=== PATIENT | female | born 1990 | race Hispanic/Latino ===

== ENCOUNTER 2017-06-05 14:21 | Emergency (ER) | payer SELFPAY ==
[2017-06-05 15:52] LABS: BASOPHILS % (AUTO) 0.5 % (0.0-5.0); EOSINOPHILS % (AUTO) 1.2 % (0.0-8.0); HEMATOCRIT 39.9 % (36-48); LYMPHOCYTES % (AUTO) 26.8 % (21.0-51.0); MEAN CORPUSCULAR HEMOGLOBIN 27.3 pg (27.0-33.0); MEAN CORPUSCULAR HGB CONC 32.7 g/dL (32.0-36.0); MEAN CORPUSCULAR VOLUME 83.6 fL (79-99); MONOCYTES % (AUTO) 7.4 % (3.0-13.0); NEUTROPHILS % (AUTO) 64.1 % (40.0-77.0); PLATELET COUNT (AUTO) 365 K/uL (130-400); RED BLOOD CELL COUNT(AUTO) 4.78 MIL/uL (4.00-5.50); RED CELL DISTRIBUTION WIDTH 14.2 % (11.0-15.5); WHITE BLOOD COUNT (AUTO) 11.1 K/uL (4.8-10.8)
[2017-06-05 16:01] LABS: APPEARANCE,URINE Clear (CLEAR); BILIRUBIN,URINE Negative (NEGATIVE); COLOR,URINE Yellow (YELLOW); GLUCOSE, URINE (UA) Negative (NEGATIVE); KETONES,URINE Negative (NEGATIVE); LEUKOCYTE ESTERASE ,URINE Negative (NEGATIVE); NITRATE,URINE Negative (NEGATIVE); OCCULT BLOOD,URINE Trace (NEGATIVE); PH,URINE 5.5 (5.0-8.0); PROTEIN,URINE Negative (NEGATIVE)
[2017-06-05 16:02] LABS: CREATININE 0.6 mg/dL (0.5-1.5); POTASSIUM 4.3 mmol/L (3.5-5.1)
[2017-06-05 16:07] LABS: ALBUMIN 3.6 g/dL (3.5-5.0); BILIRUBIN,TOTAL 0.3 mg/dL (0.2-1.0); TOTAL PROTEIN, SERUM 7.6 g/dL (6.0-8.3)
[2017-06-05 16:10] LABS: HCG,QUAL RESULT NEGATIVE (NEGATIVE)
[2017-06-05 16:16] LABS: BACTERIA,URINE Rare /HPF (None Seen); SQUAMOUS EPITHELIAL CELL,UR Few /LPF (0-2); WBC,URINE 0-1 /HPF (0-1)
[2017-06-05 16:17] LABS: MUCUS,URINE Rare LPF (None Seen)
[2017-06-05 16:19] LABS: AMPHET/METH SCREEN,URINE NEGATIVE (NEGATIVE); BARBITURATE SCREEN, URINE NEGATIVE (NEGATIVE); BENZODIAZEPINES SCREEN,URINE NEGATIVE (NEGATIVE); CANNABINOID SCREEN,URINE NEGATIVE (NEGATIVE); COCAINE SCREEN,URINE NEGATIVE (NEGATIVE); OPIATE SCREEN,URINE NEGATIVE (NEGATIVE); PHENCYCLIDINE SCREEN,URINE NEGATIVE (NEGATIVE)
[2017-06-05] MEDS ORDERED: HYOSCYAMINE SULFATE 0.125 MG TAB.SUBL SL ONE (16:26)
[2017-06-05] MEDS ORDERED: FAMOTIDINE 20MG TAB 20 MG TAB ONE (16:27)
[2017-06-05] MEDS ORDERED: ONDANSETRON ODT 4 MG TAB ONE (16:27)
== END 2017-06-05 16:44 | disposition home or self-care (01) ==
LOC: EDH 14:21
DX: R10.12 Left upper quadrant pain (principal); R11.2 Nausea with vomiting, unspecified; Z87.442 Personal history of urinary calculi; Z88.6 Allergy status to analgesic agent; Z72.0 Tobacco use
CPT/HCPCS: 36415; 80053; 80305; 81001; 81025; 83690; 85025

== ENCOUNTER 2017-10-20 19:39 | Emergency (ER) | payer OTHER ==
[2017-10-20 20:14] LABS: APPEARANCE,URINE SL CLOUDY (CLEAR); BILIRUBIN,URINE NEGATIVE (NEGATIVE); COLOR,URINE YELLOW (YELLOW); GLUCOSE, URINE (UA) NEGATIVE (NEGATIVE); KETONES,URINE 5 mg/dL (NEGATIVE); LEUKOCYTE ESTERASE ,URINE NEGATIVE (NEGATIVE); NITRATE,URINE NEGATIVE (NEGATIVE); OCCULT BLOOD,URINE SMALL (NEGATIVE); PROTEIN,URINE TRACE (NEGATIVE)
[2017-10-20 20:23] LABS: AMPHET/METH SCREEN,URINE NEGATIVE (NEGATIVE); BARBITURATE SCREEN, URINE NEGATIVE (NEGATIVE); BENZODIAZEPINES SCREEN,URINE NEGATIVE (NEGATIVE); CANNABINOID SCREEN,URINE NEGATIVE (NEGATIVE); COCAINE SCREEN,URINE NEGATIVE (NEGATIVE); OPIATE SCREEN,URINE POSITIVE (NEGATIVE); PHENCYCLIDINE SCREEN,URINE NEGATIVE (NEGATIVE)
[2017-10-20 20:26] LABS: BASOPHILS % (AUTO) 0.6 % (0.0-5.0); EOSINOPHILS % (AUTO) 1.4 % (0.0-8.0); HEMATOCRIT 39.5 % (36-48); LYMPHOCYTES % (AUTO) 23.1 % (21.0-51.0); MEAN CORPUSCULAR HEMOGLOBIN 27.1 pg (27.0-33.0); MEAN CORPUSCULAR HGB CONC 32.4 g/dL (32.0-36.0); MEAN CORPUSCULAR VOLUME 83.5 fL (79-99); MONOCYTES % (AUTO) 7.9 % (3.0-13.0); PLATELET COUNT (AUTO) 388 K/uL (130-400); RED BLOOD CELL COUNT(AUTO) 4.74 MIL/uL (4.00-5.50); RED CELL DISTRIBUTION WIDTH 14.2 % (11.0-15.5); WHITE BLOOD COUNT (AUTO) 11.9 K/uL (4.8-10.8)
[2017-10-20 20:27] LABS: BACTERIA,URINE Rare /HPF (None Seen); RBC,URINE 0-1 /HPF (0-1); WBC,URINE 0-1 /HPF (0-1)
[2017-10-20 20:38] LABS: CARBON DIOXIDE 30 mmol/L (21-32); CHLORIDE 103 mmol/L (101-111); CREATININE 0.8 mg/dL (0.5-1.5); GLOMERULAR FILTR. RATE CALC 90 mL/min (>60); GLUCOSE,RANDOM 108 mg/dL (70-105); POTASSIUM 3.9 mmol/L (3.5-5.1); SODIUM SERUM 142 mmol/L (136-145); UREA NITROGEN, BLOOD 12 mg/dL (7-18)
[2017-10-20 20:40] LABS: INR 0.95 (0.85-1.15); PARTIAL THROMBOPLASTIN TIME 28.9 SEC (26.3-35.5)
[2017-10-20 20:46] LABS: HCG,QUAL RESULT NEGATIVE (NEGATIVE)
[2017-10-20 20:50] LABS: ALANINE AMINOTRANSFERASE 35 U/L (12-78); ALBUMIN 3.8 g/dL (3.5-5.0); ASPARTATE AMINOTRANSFERASE 22 U/L (10-37); BILIRUBIN,TOTAL 0.3 mg/dL (0.2-1.0); CREATINE KINASE MB < 0.5 ng/mL (0.5-3.6); CREATINE KINASE, TOTAL 77 U/L (21-232); TOTAL PROTEIN, SERUM 7.9 g/dL (6.0-8.3)
[2017-10-20 20:55] LABS: ACETAMINOPHEN < 1 mcg/mL (10-30); ALCOHOL, BLOOD < 3 mg/dL (0-10); SALICYLATE < 2.8 mg/dL (2.8-20.0)
[2017-10-20] MEDS ORDERED: DIPHENHYDRAMINE HCL 25 MG CAPSULE ONE (21:15)
[2017-10-20] MEDS ORDERED: NAPROXEN 500 MG TABLET ONE (21:15)
[2017-10-20] MEDS ORDERED: METOCLOPRAMIDE 10 MG TABLET ONE (21:15)
== END 2017-10-20 22:18 | disposition home or self-care (01) ==
LOC: EDH 19:39
DX: G44.89 Other headache syndrome (principal); R03.0 Elevated blood-pressure reading, without diagnosis of hypertension; Z87.442 Personal history of urinary calculi; Z72.0 Tobacco use
CPT/HCPCS: 36415; 80053; 80305; 81001; 81025; 82550; 82553; 84484; 85025; 85610; 85730; 93005; 99285; G0480 ×2; G0481; Q0163

== ENCOUNTER 2018-02-05 17:17 | Emergency (ER) | payer OTHER ==
[2018-02-05] MEDS ORDERED: IBUPROFEN 600 MG TABLET ONE (19:06)
[2018-02-05] MEDS ORDERED: ACETAMINOPHEN-CODEINE 300/30MG TAB ONE (19:07)
== END 2018-02-05 19:27 | disposition home or self-care (01) ==
LOC: EDH 17:17
DX: R07.89 Other chest pain (principal); M94.0 Chondrocostal junction syndrome [Tietze]; Z87.891 Personal history of nicotine dependence; Z87.442 Personal history of urinary calculi; Z90.49 Acquired absence of other specified parts of digestive tract
CPT/HCPCS: 71045

== ENCOUNTER 2019-06-26 22:22 | Emergency (ER) | payer SELFPAY ==
[2019-06-26] MEDS ORDERED: ONDANSETRON ODT 4 MG TAB ONE (23:07)
[2019-06-26 23:34] LABS: HCG,QUAL RESULT NEGATIVE (NEGATIVE)
[2019-06-26 23:36] LABS: APPEARANCE,URINE Clear (CLEAR); BILIRUBIN,URINE Negative (NEGATIVE); COLOR,URINE Yellow (YELLOW); GLUCOSE, URINE (UA) Negative (NEGATIVE); KETONES,URINE Negative (NEGATIVE); LEUKOCYTE ESTERASE ,URINE Negative (NEGATIVE); NITRATE,URINE Negative (NEGATIVE); OCCULT BLOOD,URINE Negative (NEGATIVE); PH,URINE 5.5 (5.0-8.0); PROTEIN,URINE Negative (NEGATIVE)
[2019-06-26] MEDS ORDERED: KETOROLAC TROMETHAMINE 60 MG/2 ML VIAL ONE (23:43)
[2019-06-26] MEDS ORDERED: CYCLOBENZAPRINE HCL 10 MG TABLET ONE (23:43)
== END 2019-06-27 01:29 | disposition home or self-care (01) ==
LOC: EDH 22:22
DX: M54.31 Sciatica, right side (principal); K21.9 Gastro-esophageal reflux disease without esophagitis
CPT/HCPCS: 81003; 81025; 93971; 96372; 99284; J1885

== ENCOUNTER 2020-07-30 22:23 | Emergency (ER) | payer OTHER, SELFPAY ==
[2020-07-30] MEDS ORDERED: ASPIRIN 325 MG TABLET ONE (23:00)
[2020-07-30 23:26] LABS: BASOPHILS % (AUTO) 0.4 % (0.0-5.0); EOSINOPHILS % (AUTO) 1.5 % (0.0-8.0); HEMATOCRIT 39.5 % (36-48); LYMPHOCYTES % (AUTO) 30.2 % (21.0-51.0); MEAN CORPUSCULAR HEMOGLOBIN 26.9 pg (27.0-33.0); MEAN CORPUSCULAR HGB CONC 31.6 g/dL (32.0-36.0); MEAN CORPUSCULAR VOLUME 85.1 fL (79-99); NEUTROPHILS % (AUTO) 59.6 % (40.0-77.0); PLATELET COUNT (AUTO) 334 K/uL (130-400); RED BLOOD CELL COUNT(AUTO) 4.64 MIL/uL (4.00-5.50); RED CELL DISTRIBUTION WIDTH 13.5 % (11.0-15.5); WHITE BLOOD COUNT (AUTO) 11.4 K/uL (4.8-10.8)
[2020-07-30 23:44] LABS: CREATININE 0.8 mg/dL (0.5-1.5); POTASSIUM 3.9 mmol/L (3.5-5.1)
[2020-07-30 23:49] LABS: ALBUMIN 3.8 g/dL (3.5-5.0); BILIRUBIN,TOTAL 0.4 mg/dL (0.2-1.0); TOTAL PROTEIN, SERUM 7.7 g/dL (6.0-8.3)
[2020-07-31] MEDS ORDERED: MAG HYDROX/AL HYDROX/SIMETH ES 30 ML SUSP UDCUP ONE (01:00)
[2020-07-31] MEDS ORDERED: LIDOCAINE HCL 2% VISCOUS 15 ML UDCUP ONE (01:00)
== END 2020-07-31 03:13 | disposition home or self-care (01) ==
LOC: EDH 22:23
DX: R07.89 Other chest pain (principal); F41.1 Generalized anxiety disorder; E66.01 Morbid (severe) obesity due to excess calories; K21.9 Gastro-esophageal reflux disease without esophagitis
CPT/HCPCS: 36415; 71045; 80053; 84484; 85025; 85378; 93005

== ENCOUNTER 2020-11-11 09:31 | Emergency (ER) | payer OTHER ==
[~2020-11-11] VITALS: Ht 149.9 cm; Wt 139.7 kg
[2020-11-11 10:00] VITALS: BP 120/67
[2020-11-11 10:01] LABS: BASOPHILS % (AUTO) 0.5 % (0.0-5.0); HEMATOCRIT 40.4 % (36-48); LYMPHOCYTES % (AUTO) 26.3 % (21.0-51.0); MEAN CORPUSCULAR HEMOGLOBIN 26.1 pg (27.0-33.0); MEAN CORPUSCULAR HGB CONC 30.4 g/dL (32.0-36.0); MEAN CORPUSCULAR VOLUME 85.8 fL (79-99); MONOCYTES % (AUTO) 8.7 % (3.0-13.0); NEUTROPHILS % (AUTO) 63.1 % (40.0-77.0); PLATELET COUNT (AUTO) 342 K/uL (130-400); RED BLOOD CELL COUNT(AUTO) 4.71 MIL/uL (4.00-5.50); RED CELL DISTRIBUTION WIDTH 13.8 % (11.0-15.5); WHITE BLOOD COUNT (AUTO) 9.1 K/uL (4.8-10.8)
[2020-11-11 10:04] LABS: APPEARANCE,URINE Cloudy (CLEAR); BILIRUBIN,URINE Small (NEGATIVE); COLOR,URINE Dark Yellow (YELLOW); GLUCOSE, URINE (UA) Negative (NEGATIVE); KETONES,URINE Trace mg/dL (NEGATIVE); LEUKOCYTE ESTERASE ,URINE Trace (NEGATIVE); NITRATE,URINE Negative (NEGATIVE); OCCULT BLOOD,URINE Large (NEGATIVE); PH,URINE 5.5 (5.0-8.0); PROTEIN,URINE POS 1+ mg/dL (NEGATIVE)
[2020-11-11 10:09] LABS: CREATININE 0.8 mg/dL (0.5-1.5)
[2020-11-11 10:09] LABS: HCG,QUAL RESULT NEGATIVE (NEGATIVE)
[2020-11-11 10:13] LABS: ALBUMIN 3.9 g/dL (3.5-5.0); BILIRUBIN,TOTAL 0.4 mg/dL (0.2-1.0); TOTAL PROTEIN, SERUM 7.9 g/dL (6.0-8.3)
[2020-11-11 10:30] LABS: MUCUS,URINE Moderate LPF (None Seen); SQUAMOUS EPITHELIAL CELL,UR Few /HPF (0-2)
[2020-11-11] MEDS ORDERED: ONDANSETRON 4MG INJ IVP ONE (10:30)
[2020-11-11] MEDS ORDERED: KETOROLAC 30MG VIAL (30MG/ML) IV ONE (10:30)
[2020-11-11] MEDS ORDERED: MORPHINE 4 MG SYG IV ONE (10:30)
[2020-11-11 10:33] LABS: WBC,URINE 51-100 /HPF (0-1)
[2020-11-11 10:34] LABS: BACTERIA,URINE Few /HPF (None Seen)
[2020-11-11] MEDS: CEFTRIAXONE 1G VIAL IVP SCH ×3 (11:05→14:08)
[2020-11-11] MEDS ORDERED: 0.9%NACL 100ML 100 ML ONE (11:22)
[2020-11-11 12:00] VITALS: BP 116/74
[2020-11-11 14:02] VITALS: BP 118/38
[2020-11-11] MEDS ORDERED: LEVO500T89 PO (14:07)
[2020-11-11] MEDS ORDERED: ONDA4TAB10 PO (14:07)
[2020-11-11] MEDS ORDERED: IBUP-2070 PO (14:07)
[2020-11-11] MEDS ORDERED: PHEN-847 PO (22:07)
[2020-11-11] MEDS ORDERED: TAMS-1 PO (22:07)
== END 2020-11-11 14:54 | disposition home or self-care (01) ==
LOC: EDH 09:31
DX: N20.1 Calculus of ureter (principal); N39.0 Urinary tract infection, site not specified
CPT/HCPCS: 36415; 74176; 80053; 81001; 81025; 83690; 85025; 87088; 96374; 96375; 99284; J0696; J1885; J2270; J2405

== ENCOUNTER 2020-11-11 21:12 | Emergency (ER) | payer OTHER ==
[~2020-11-11] VITALS: Ht 149.9 cm; Wt 136.1 kg
[~2020-11-11 21:12] MED LIST: IBUP-2070 PO; LEVO500T89 PO; ONDA4TAB10 PO
[2020-11-11] MEDS ORDERED: KETOROLAC 30MG VIAL (30MG/ML) IM ONE (22:00)
[2020-11-11] MEDS ORDERED: PHENAZOPYRIDINE HCL 200 MG TABLET PO ONE (22:00)
[2020-11-11] MEDS ORDERED: TAMS-1 PO (22:07)
[2020-11-11] MEDS ORDERED: PHEN-847 PO (22:07)
[2020-11-11 22:15] VITALS: BP 136/51
== END 2020-11-11 22:29 | disposition home or self-care (01) ==
LOC: EDH 21:12
DX: N20.0 Calculus of kidney (principal); N39.0 Urinary tract infection, site not specified; Z79.1 Long term (current) use of non-steroidal anti-inflammatories (NSAID); Z79.899 Other long term (current) drug therapy
CPT/HCPCS: 96372; 99283; J1885

== ENCOUNTER 2021-02-20 08:09 | Emergency (ER) | payer SELFPAY ==
[~2021-02-20] VITALS: Ht 149.9 cm; Wt 136.1 kg
[~2021-02-20 08:09] MED LIST changes: -LEVO500T89 PO; +LEVO500T90 PO; +PHEN-847 PO; +TAMS-1 PO
[2021-02-20 09:51] LABS: BASOPHILS % (AUTO) 0.7 % (0.0-5.0); EOSINOPHILS % (AUTO) 1.5 % (0.0-8.0); HEMATOCRIT 40.4 % (36-48); LYMPHOCYTES % (AUTO) 26.4 % (21.0-51.0); MEAN CORPUSCULAR HEMOGLOBIN 26.1 pg (27.0-33.0); MEAN CORPUSCULAR HGB CONC 30.7 g/dL (32.0-36.0); MEAN CORPUSCULAR VOLUME 85.1 fL (79-99); MONOCYTES % (AUTO) 6.7 % (3.0-13.0); NEUTROPHILS % (AUTO) 64.3 % (40.0-77.0); PLATELET COUNT (AUTO) 337 K/uL (130-400); RED BLOOD CELL COUNT(AUTO) 4.75 MIL/uL (4.00-5.50); RED CELL DISTRIBUTION WIDTH 13.6 % (11.0-15.5); WHITE BLOOD COUNT (AUTO) 10.6 K/uL (4.8-10.8)
[2021-02-20 10:00] LABS: CREATININE 0.7 mg/dL (0.5-1.5); POTASSIUM 4.4 mmol/L (3.5-5.1)
[2021-02-20] MEDS ORDERED: ONDANSETRON 4MG INJ IVP ONE (10:00)
[2021-02-20] MEDS ORDERED: KETOROLAC 30MG VIAL (30MG/ML) IVP ONE (10:00)
[2021-02-20] MEDS ORDERED: 0.9%NACL 1000ML 1,000 ML IV ONE (10:00)
[2021-02-20 10:05] LABS: ALBUMIN 3.9 g/dL (3.5-5.0); BILIRUBIN,TOTAL 0.4 mg/dL (0.2-1.0); TOTAL PROTEIN, SERUM 8.1 g/dL (6.0-8.3)
[2021-02-20] MEDS ORDERED: HYDROCODONE/ACETAMINOPHEN 10/325 MG TAB PO ONE (12:00)
[2021-02-20] MEDS ORDERED: IOHEXOL-350 75 ML VIAL IV ONE (12:02)
[2021-02-20] MEDS ORDERED: BUTA-271 PO (15:32)
[2021-02-20 15:52] VITALS: BP 146/75
== END 2021-02-20 15:56 | disposition home or self-care (01) ==
LOC: EDH 08:09
DX: G43.909 Migraine, unspecified, not intractable, without status migrainosus (principal); Z79.1 Long term (current) use of non-steroidal anti-inflammatories (NSAID); Z79.899 Other long term (current) drug therapy; Z87.442 Personal history of urinary calculi
CPT/HCPCS: 36415; 70450; 70496; 70498; 80053; 81025; 84484; 84702; 85025; 93005; 96361; 96374; 96375; 99285; J1885; J2405; J7030; Q9967

== ENCOUNTER 2021-09-14 01:19 | Emergency (ER) | payer OTHER ==
[~2021-09-14] VITALS: Ht 149.9 cm; Wt 142.9 kg
[~2021-09-14 01:19] MED LIST changes: +BUTA-271 PO
[2021-09-14 02:03] LABS: BASOPHILS % (AUTO) 0.5 % (0.0-5.0); EOSINOPHILS % (AUTO) 0.6 % (0.0-8.0); HEMATOCRIT 40.6 % (36-48); LYMPHOCYTES % (AUTO) 23.2 % (21.0-51.0); MEAN CORPUSCULAR HEMOGLOBIN 26.3 pg (27.0-33.0); MEAN CORPUSCULAR HGB CONC 30.8 g/dL (32.0-36.0); MEAN CORPUSCULAR VOLUME 85.5 fL (79-99); MONOCYTES % (AUTO) 6.4 % (3.0-13.0); NEUTROPHILS % (AUTO) 68.9 % (40.0-77.0); PLATELET COUNT (AUTO) 329 K/uL (130-400); RED BLOOD CELL COUNT(AUTO) 4.75 MIL/uL (4.00-5.50); RED CELL DISTRIBUTION WIDTH 13.2 % (11.0-15.5); WHITE BLOOD COUNT (AUTO) 14.5 K/uL (4.8-10.8)
[2021-09-14 02:16] LABS: CREATININE 0.9 mg/dL (0.5-1.5); POTASSIUM 3.7 mmol/L (3.5-5.1)
[2021-09-14 02:21] LABS: ALBUMIN 3.9 g/dL (3.5-5.0); BILIRUBIN,TOTAL 0.6 mg/dL (0.2-1.0); TOTAL PROTEIN, SERUM 7.9 g/dL (6.0-8.3)
[2021-09-14] MEDS ORDERED: ONDANSETRON 4MG INJ IVP ONE (03:30)
[2021-09-14] MEDS ORDERED: MORPHINE 4 MG SYG IVP ONE (03:30)
[2021-09-14] MEDS ORDERED: 0.9%NACL 1000ML 1,000 ML IV ONE ×2 (03:30→05:30)
[2021-09-14] MEDS ORDERED: KETOROLAC 30MG VIAL (30MG/ML) ONE (04:13)
[2021-09-14] MEDS ORDERED: HYDROMORPHONE 0.5 MG SYG (0.5MG/0.5ML) IVP ONE (05:30)
[2021-09-14] MEDS ORDERED: IBUP-2070 PO (05:31)
[2021-09-14] MEDS ORDERED: ACET-2079 PO (05:31)
[2021-09-14 06:21] VITALS: BP 125/83
== END 2021-09-14 06:25 | disposition home or self-care (01) ==
LOC: EDH 01:19
DX: N23 Unspecified renal colic (principal); Z79.1 Long term (current) use of non-steroidal anti-inflammatories (NSAID); Z90.49 Acquired absence of other specified parts of digestive tract; Z87.442 Personal history of urinary calculi
CPT/HCPCS: 36415; 74176; 80053; 84703; 85025; 96361; 96374; 96375; 99285; J1170; J1885; J2270; J2405; J7030

== ENCOUNTER 2021-09-21 10:14 | Emergency (ER) | payer OTHER ==
[~2021-09-21] VITALS: Ht 149.9 cm; Wt 142.4 kg
[~2021-09-21 10:14] MED LIST changes: +ACET-2079 PO
[2021-09-21 10:57] LABS: BASOPHILS % (AUTO) 0.5 % (0.0-5.0); EOSINOPHILS % (AUTO) 1.2 % (0.0-8.0); HEMATOCRIT 39.1 % (36-48); LYMPHOCYTES % (AUTO) 26.6 % (21.0-51.0); MEAN CORPUSCULAR HEMOGLOBIN 25.9 pg (27.0-33.0); MEAN CORPUSCULAR HGB CONC 30.2 g/dL (32.0-36.0); MEAN CORPUSCULAR VOLUME 85.7 fL (79-99); MONOCYTES % (AUTO) 6.9 % (3.0-13.0); NEUTROPHILS % (AUTO) 64.2 % (40.0-77.0); PLATELET COUNT (AUTO) 336 K/uL (130-400); RED BLOOD CELL COUNT(AUTO) 4.56 MIL/uL (4.00-5.50); RED CELL DISTRIBUTION WIDTH 13.2 % (11.0-15.5); WHITE BLOOD COUNT (AUTO) 10.9 K/uL (4.8-10.8)
[2021-09-21] MEDS ORDERED: ONDANSETRON 4MG INJ IVP ONE (11:00)
[2021-09-21] MEDS ORDERED: KETOROLAC 30MG VIAL (30MG/ML) IVP ONE (11:00)
[2021-09-21] MEDS ORDERED: 0.9%NACL 1000ML 1,000 ML IV ONE (11:00)
[2021-09-21 11:09] LABS: APPEARANCE,URINE Turbid (CLEAR); BILIRUBIN,URINE Negative (NEGATIVE); COLOR,URINE Dark Yellow (YELLOW); GLUCOSE, URINE (UA) Negative (NEGATIVE); KETONES,URINE Trace mg/dL (NEGATIVE); LEUKOCYTE ESTERASE ,URINE Small (NEGATIVE); NITRATE,URINE Negative (NEGATIVE); OCCULT BLOOD,URINE Large (NEGATIVE); PROTEIN,URINE POS 1+ mg/dL (NEGATIVE)
[2021-09-21 11:11] LABS: HCG,QUAL RESULT NEGATIVE (NEGATIVE)
[2021-09-21 11:22] LABS: CREATININE 0.7 mg/dL (0.5-1.5); POTASSIUM 4.2 mmol/L (3.5-5.1)
[2021-09-21 11:26] LABS: ALBUMIN 3.7 g/dL (3.5-5.0); BILIRUBIN,TOTAL 0.5 mg/dL (0.2-1.0); TOTAL PROTEIN, SERUM 7.7 g/dL (6.0-8.3)
[2021-09-21 11:28] LABS: BACTERIA,URINE Moderate /HPF (None Seen); RBC,URINE None Seen /HPF (0-1); WBC,URINE 26-50 /HPF (0-1)
[2021-09-21] MEDS ORDERED: CEFTRIAXONE 1G VIAL IVP ONE (13:30)
[2021-09-21] MEDS ORDERED: CEPH500B PO (13:34)
[2021-09-21 13:56] VITALS: BP 129/81
== END 2021-09-21 14:15 | disposition home or self-care (01) ==
LOC: EDH 10:14
DX: N10 Acute pyelonephritis (principal); Z90.49 Acquired absence of other specified parts of digestive tract; Z79.1 Long term (current) use of non-steroidal anti-inflammatories (NSAID)
CPT/HCPCS: 36415; 74176; 80053; 81001; 81025; 85025; 87088; 96361; 96374; 96375; 99284; J0696; J1885; J2405; J7030

== ENCOUNTER 2022-02-23 01:52 | Emergency (ER) | payer OTHER ==
[~2022-02-23] VITALS: Ht 149.9 cm; Wt 143.9 kg
[~2022-02-23 01:52] MED LIST changes: +CEPH500B PO; +LEVO-70 PO; -LEVO500T90 PO
[2022-02-23 03:36] LABS: BASOPHILS % (AUTO) 0.7 % (0.0-5.0); EOSINOPHILS % (AUTO) 2.4 % (0.0-8.0); LYMPHOCYTES % (AUTO) 26.5 % (21.0-51.0); MEAN CORPUSCULAR HEMOGLOBIN 26.2 pg (27.0-33.0); MEAN CORPUSCULAR VOLUME 84.6 fL (79-99); MONOCYTES % (AUTO) 8.1 % (3.0-13.0); NEUTROPHILS % (AUTO) 61.8 % (40.0-77.0); PLATELET COUNT (AUTO) 316 K/uL (130-400); RED BLOOD CELL COUNT(AUTO) 4.73 MIL/uL (4.00-5.50); RED CELL DISTRIBUTION WIDTH 13.7 % (11.0-15.5); WHITE BLOOD COUNT (AUTO) 12.3 K/uL (4.8-10.8)
[2022-02-23 03:38] LABS: HCG,QUALITATIVE URINE NEGATIVE (NEGATIVE)
[2022-02-23 03:39] LABS: APPEARANCE,URINE CLEAR (CLEAR); BILIRUBIN,URINE NEGATIVE (NEGATIVE); COLOR,URINE LIGHT-YELLOW (YELLOW); GLUCOSE, URINE (UA) NEGATIVE (NEGATIVE); KETONES,URINE NEGATIVE (NEGATIVE); LEUKOCYTE ESTERASE ,URINE NEGATIVE Leu/uL (NEGATIVE); NITRATE,URINE NEGATIVE (NEGATIVE); OCCULT BLOOD,URINE NEGATIVE (NEGATIVE); PH,URINE 6.5 (5.0-8.0); PROTEIN,URINE NEGATIVE (NEGATIVE); UROBILINOGEN,URINE 0.2 mg/dL (0.2-1.0)
[2022-02-23 03:46] LABS: CREATININE 0.7 mg/dL (0.5-1.5)
[2022-02-23 03:50] LABS: ALBUMIN 3.7 g/dL (3.5-5.0)
[2022-02-23] MEDS ORDERED: KETOROLAC 60 MG VIAL (30MG/ML) IM ONE (04:00)
[2022-02-23] MEDS ORDERED: FAMOTIDINE 20MG TAB PO ONE (04:00)
[2022-02-23] MEDS ORDERED: HYOSCYAMINE SULFATE 0.125 MG TAB.SUBL SL ONE (04:00)
[2022-02-23] MEDS ORDERED: KETOROLAC 30MG VIAL (30MG/ML) IVP ONE (04:30)
[2022-02-23 04:31] LABS: PLATELET MORPHOLOGY LARGE PLTS PRESENT
[2022-02-23 06:13] VITALS: BP 127/76
[2022-02-23] MEDS ORDERED: SUCR1TAB28 PO (06:39)
[2022-02-23] MEDS ORDERED: FAMO-136 PO (06:39)
== END 2022-02-23 06:52 | disposition home or self-care (01) ==
LOC: EDH 01:52
DX: R07.89 Other chest pain (principal); R06.02 Shortness of breath; R11.0 Nausea; Z79.1 Long term (current) use of non-steroidal anti-inflammatories (NSAID)
CPT/HCPCS: 99285; 96374; 71045; 82550; 84484 ×2; 80053; 83690; 85025; 85378; 87804 ×2; 81003; 81025; 36415; 93005 ×2; J1885

== ENCOUNTER 2024-04-26 17:22 | Emergency (ER) | payer SELFPAY ==
[~2024-04-26] VITALS: Ht 149.9 cm; Wt 136.1 kg
[~2024-04-26 17:22] MED LIST changes: +FAMO-136 PO; +KETO10TA2 PO; +METH-662 PO; +ONDA-243 PO; -ONDA4TAB10 PO; +SUCR1TAB28 PO
[2024-04-26 17:41] LABS: APPEARANCE,URINE CLOUDY (CLEAR); BILIRUBIN,URINE NEGATIVE (NEGATIVE); COLOR,URINE YELLOW (YELLOW); GLUCOSE, URINE (UA) NEGATIVE (NEGATIVE); KETONES,URINE NEGATIVE (NEGATIVE); LEUKOCYTE ESTERASE ,URINE NEGATIVE Leu/uL (NEGATIVE); NITRATE,URINE NEGATIVE (NEGATIVE); OCCULT BLOOD,URINE LARGE (NEGATIVE); PH,URINE 5.5 (5.0-8.0); PROTEIN,URINE 50 mg/dL (NEGATIVE); UROBILINOGEN,URINE 0.2 mg/dL (0.2-1.0)
[2024-04-26 17:43] LABS: ADD UA MICROSCOPIC YES
[2024-04-26 17:46] LABS: BACTERIA,URINE RARE /HPF (None Seen); HCG,QUALITATIVE URINE NEGATIVE (NEGATIVE); MUCUS,URINE FEW LPF (None Seen); RBC,URINE >100 /HPF (0-1); SQUAMOUS EPITHELIAL CELL,UR FEW /HPF (0-2); YEAST,URINE BUDDING FEW /HPF (None Seen)
[2024-04-26] MEDS: 0.9%NACL 1000ML 1,000 ML IV STA (19:48)
[2024-04-26] MEDS: ketOROlac 15MG/ML VIAL (15MG/ML) IV STA (19:48)
--- NOTE | 2024-04-26 19:51 | HMCIMG ---
CT ABDOMEN/PELVIS W/O CONTRAST HISTORY: Left flank pain COMPARISON: 10/08/2023 TECHNIQUE: Multiple sequential axial images of the abdomen and pelvis were obtained from the dome of the diaphragm through symphysis pubis. Patient was not given contrast through intravenous route. Oral contrast was not given. FINDINGS: No pleural effusion is seen bilaterally. There is no evidence of parenchymal disease or pulmonary nodule of the visualized lower lungs. Degenerative changes of the thoracolumbar spine are present. The heart is not enlarged. Liver is enlarged with fatty changes measuring 20 cm. Postcholecystectomy changes are seen. The liver, spleen, adrenal glands and pancreas are unremarkable. No hydronephrosis is seen on the right. There is mild left hydronephrosis and left hydroureter with 3 mm renal stone in the left UV junction. There is mild diverticulosis. Fecal material is seen in the colon. There are normal size retroperitoneal and mesenteric lymph nodes. No ascites is seen. Atherosclerotic changes are present. Pelvic sidewalls are symmetric bilaterally. Bladder is poorly distended. IMPRESSION: 1. There is mild left hydronephrosis and left hydroureter with 3 mm renal stone in the left UV junction. There is mild diverticulosis. CT was performed with one or more following dose reduction techniques: automated exposure control, adjustment of the mA and kv according to patient's size, or use of a iterative reconstruction technique.
[2024-04-26 20:13] LABS: BASOPHILS # (AUTO) 0.06 K/uL (0.00-0.20); BASOPHILS % (AUTO) 0.4 % (0.0-5.0); EOSINOPHILS # (AUTO) 0.13 K/uL (0.00-0.70); HEMATOCRIT 40.3 % (36-48); IMMATURE GRANULOCYTE ABSOLUTE 0.07 K/uL (0-1); LYMPHOCYTES # (AUTO) 1.9 K/uL (1.0-4.8); MEAN CORPUSCULAR HEMOGLOBIN 26.1 pg (27.0-33.0); MEAN CORPUSCULAR HGB CONC 30.8 g/dL (32.0-36.0); MEAN CORPUSCULAR VOLUME 84.7 fL (79-99); MONOCYTES # (AUTO) 0.8 K/uL (0.1-1.0); MONOCYTES % (AUTO) 5.8 % (3.0-13.0); NEUTROPHILS # (AUTO) 10.7 K/uL (1.8-7.7); NEUTROPHILS % (AUTO) 78.3 % (40.0-77.0); PLATELET COUNT (AUTO) 359 K/uL (130-400); RED BLOOD CELL COUNT(AUTO) 4.76 MIL/uL (4.00-5.50); WHITE BLOOD COUNT (AUTO) 13.6 K/uL (4.8-10.8)
[2024-04-26 20:21] LABS: CREATININE 0.7 mg/dL (0.5-1.0); POTASSIUM 4.4 mmol/L (3.5-5.1)
[2024-04-26] MEDS ORDERED: TAMS-1 PO (20:56)
[2024-04-26] MEDS ORDERED: SULF1TAB42 PO (20:56)
[2024-04-26] MEDS ORDERED: KETO10TA2 PO (20:56)
--- NOTE | 2024-04-26 20:57 | ERN ---
ED Note History of Present Illness Stated Complaint: LUQ, LLQ PAIN Chief Complaint: Abdominal Pain Time Seen by MD: 17:34 Time Seen by Midlevel: 17:40 Dictation: 34-year-old female with a history of kidney stones coming in complaining of left lower quadrant pain and left flank pain onset a few days ago. Patient states today while she was in the lobby she threw up 4 times. Denies any fever. LMP 04/05/24. Allergies: Coded Allergies: No Known Drug Allergies (Verified Allergy, 09/18/11) Home Meds Active Scripts Methocarbamol (Robaxin) 750 Mg Tab, 750 MG PO DAILY for 7 Days, #7 TAB Prov:ARIES ALVARADO 10/08/23 Ketorolac Tromethamine (Ketorolac Tromethamine) 10 Mg Tablet, 10 MG PO BID for 5 Days, #10 TAB Prov:ARIES ALVARADO 10/08/23 Ibuprofen (Ibuprofen) 600 Mg Tablet, 600 MG PO Q6H PRN for PAIN, #15 TAB Prov:SHANIKA ARENAS 06/11/22 Sucralfate (Carafate) 1 Gm Tablet, 1 GM PO QIDP PRN for PAIN, #30 TAB 0 Refills Prov:KEANU SMITH MD 02/23/22 Famotidine (Pepcid) 20 Mg Tablet, 20 MG PO DAILY, #20 TAB Prov:KEANU SMITH MD 02/23/22 Cephalexin Monohydrate (Keflex) 500 Mg Cap, 500 MG PO TID for 7 Days, #21 CAP 0 Refills Prov:JAIME BOLANOS MD 09/21/21 Acetaminophen with Codeine (Acetaminophen-Cod #3 Tablet) 1 Each Tablet, 1 EACH PO QID, #20 TAB Prov:EVELIA BLANCO MD 09/14/21 Ibuprofen (Ibuprofen) 600 Mg Tablet, 600 MG PO Q6H PRN for PAIN, #30 TAB Prov:EVELIA BLANCO MD 09/14/21 Butalb/Acetaminophen/Caffeine (Esgic 50-325-40 mg Tablet) 1 Each Tablet, 1 EACH PO TIDP PRN for HEADACHE, #15 TAB 0 Refills Prov:JAIME BOLANOS MD 02/20/21 Tamsulosin HCl (Flomax) 0.4 Mg Cap.er.24h, 0.4 MG PO DAILY, #5 CAPSULE. Prov:ANNA HOLLAND NP 11/11/20 Phenazopyridine HCl (Pyridium) 200 Mg Tab, 200 MG PO TIDPC, #9 TAB TAKE WITH FOOD TO PREVENT STOMACH UPSET. Prov:ANNA HOLLAND NP 11/11/20 Levofloxacin (Levofloxacin) 500 Mg Tablet, 500 MG PO DAILY for cystitis for 7 Days, #15 TAB 0 Refills Prov:KEANU SMITH MD 11/11/20 Ondansetron (Ondansetron Odt) 4 Mg Tab.rapdis, 4 MG PO TID PRN for nausea for 3 Days, #10 TAB Prov:KEANU SMITH MD 11/11/20 Ibuprofen (Ibuprofen) 600 Mg Tablet, 600 MG PO Q6H PRN for PAIN for 10 Days, #30 TAB Prov:KEANU SMITH MD 11/11/20 Past Medical History Past Medical History: High Cholesterol Additional Past Medical Hx: KIDNEY STONES Surgical History: Cholecystectomy Social History: Negative, Lives with family, Other History: Not Applicable LMP: Mar 30, 2024 : 3 Para: 3 Aborts: 0 Review of System Dictation Constitutional: Negative for fever,chills, and weight loss Eyes: Negative for injury, pain,redness, and discharge ENT: Negative for injury,pain or swelling Cardiovascular: Negative for chest pain, palpitations, and edema Respiratory: Negative for shortness of breath, cough, and wheezing, Abdomen/GI: Complaining of left lower quadrant pain, nausea, vomiting, diarrhea , and constipation Back: Negative for injury and pain : Negative for injury, bleeding and discharge MS/Extremity: Negative for injury and deformity Skin: Negative for rash, and discoloration Neuro: Negative for headache, weakness, numbness, tingling, and seizure Psych: Negative for suicide ideation, homicidal ideation, and hallucinations Review of Systems: was completed Initial Vital Sign VS Vital Signs Date Time Temp Pulse Resp B/P (MAP) Pulse Ox O2 Delivery O2 Flow Rate FiO2 04/26/24 17:24 98.1 92 16 156/103 100 Room Air 0 04/26/24 20:03 21 Physical Exam Dictation General: awake, alert, NAD Head/Face: Normocephalic, atraumatic Eyes: PERRL, EOMI, vision at baseline ENT: oral cavity clear, TMs clear, no signs of infection Neck: Trachea midline, supple, no nuchal rigidity Cardiovascular: RRR, normal S1/S2, No MRGs, no JVD Respiratory: CTAB, no respiratory distress, No rales or wheezes Abdomen: Soft, non-tender, non-distended, normal bowel sounds, no guarding or rebound. Skin: Warm, dry, normal turgor, no rash MS/Extremity: Pulses equal, no cyanosis, neurovascular intact, FROM Neuro: COAx4, GCS 15, strength 5/5, CN 2-12 intact, normal cerebellar exam, nor mal gait, Psych: Normal behavior, mood, and affect normal Results (Laboratory/Radiology) Laboratory/Radiology Laboratory Tests Test 04/26/24 17:32 04/26/24 19:58 Urine Color YELLOW (YELLOW) Urine Appearance CLOUDY (CLEAR) H Urine pH 5.5 (5.0-8.0) Urine Specific [place] 1.029 (1.001-1.031) Urine Protein 50 mg/dL (NEGATIVE) H Urine Glucose (UA) NEGATIVE mg/dL (NEGATIVE) Urine Ketones NEGATIVE mg/dL (NEGATIVE) Urine Occult Blood LARGE (NEGATIVE) H Urine Nitrate NEGATIVE (NEGATIVE) Urine Bilirubin NEGATIVE mg/dL (NEGATIVE) Urine Urobilinogen 0.2 mg/dL (0.2-1.0) Urine Leukocyte Esterase NEGATIVE Balwinder/uL Urine RBC >100 /HPF (0-1) H Urine WBC 6-10 /HPF (0-1) H Urine Squamous Epithelial Cells FEW /HPF (0-2) Urine Bacteria RARE /HPF (None Seen) Urine Yeast FEW /HPF (None Seen) Urine HCG, Qualitative NEGATIVE (NEGATIVE) White Blood Count 13.6 K/uL (4.8-10.8) H Red Blood Count 4.76 MIL/uL (4.00-5.50) Hemoglobin 12.4 g/dL (12.0-16.0) Hematocrit 40.3 % (36-48) Mean Corpuscular Volume 84.7 fL (79-99) Mean Corpuscular Hemoglobin 26.1 pg (27.0-33.0) L Mean Corpuscular Hemoglobin Concent 30.8 g/dL (32.0-36.0) L Red Cell Distribution Width 14.0 % (11.0-15.5) Platelet Count 359 K/uL (130-400) Mean Platelet Volume 8.8 fL (7.5-10.5) Immature Granulocyte % (Auto) 0.5 % (0-1) Neutrophils (%) (Auto) 78.3 % (40.0-77.0) H Lymphocytes (%) (Auto) 14.0 % (21.0-51.0) L Monocytes (%) (Auto) 5.8 % (3.0-13.0) Eosinophils (%) (Auto) 1.0 % (0.0-8.0) Basophils (%) (Auto) 0.4 % (0.0-5.0) Neutrophils # (Auto) 10.7 K/uL (1.8-7.7) H Lymphocytes # (Auto) 1.9 K/uL (1.0-4.8) Monocytes # (Auto) 0.8 K/uL (0.1-1.0) Eosinophils # (Auto) 0.13 K/uL (0.00-0.70) Basophils # (Auto) 0.06 K/uL (0.00-0.20) Absolute Immature Granulocyte (auto 0.07 K/uL (0-1) Nucleated Red Blood Cells 0.0 % (0.0-0.19) Sodium Level 142 mmol/L (136-145) Potassium Level 4.4 mmol/L (3.5-5.1) Chloride Level 102 mmol/L (101-111) Carbon Dioxide Level 30 mmol/L (21-32) Blood Urea Nitrogen 13 mg/dL (7-18) Creatinine 0.7 mg/dL (0.5-1.0) Glomerular Filtration Rate Calc 115 mL/min (>90) Random Glucose 102 mg/dL (70-105) Total Calcium 9.6 mg/dL (8.5-10.1) Labs Reviewed?: Yes ED Course ED Course Orders Procedure Category Date Status Time Urinalysis Profile LAB 04/26/24 Complete 17:27 ,Urine Test LAB 04/26/24 Complete 17:27 Culture Urine JOYCELYN 04/26/24 In Process 17:48 Cbc With Differential LAB 04/26/24 In Process 19:22 Basic Metabolic Panel LAB 04/26/24 Complete 19:22 Ct Abdomen/Pelvis W/O CT 04/26/24 Resulted Contrast 19:22 0.9%Nacl 1000ml (Ns PHA 04/26/24 In Process 1000ml) 19:23 Ketorolac PHA 04/26/24 Complete Tromethamine 15mg/Ml 19:23 Current Medications Medications (Trade) Dose Ordered Sig/Merle Route PRN Reason Start Time Stop Time Status Last Admin Dose Admin Ketorolac Tromethamine (toRADol) 15 mg ONCE STAT IV 04/26/24 19:23 04/26/24 19:25 DC 04/26/24 19:48 Sodium Chloride 1,000 ml @ 100 mls/hr Q10H STAT IV 04/26/24 19:23 04/27/24 05:22 04/26/24 19:48 Vital Signs Date Time Temp Pulse Resp B/P (MAP) Pulse Ox O2 Delivery O2 Flow Rate FiO2 04/26/24 20:03 98.2 90 18 154/92 97 Room Air* 0 21 04/26/24 17:24 98.1 92 16 156/103 100 Room Air 0 Medical Decision Making MDM MDM: 34-year-old female with a history of kidney stones coming in complaining of left lower quadrant pain and left flank pain onset a few days ago. Patient states today while she was in the lobby she threw up 4 times. Denies any fever. LMP 04/05/24. CBC shows leukocytosis of 13, no anemia, no thrombocytopenia. Chemistry unremarkable, normal kidney function. UA shows evidence of hematuria with a mild urinary tract infection. CT scan of the abdomen and pelvis with the contrast shows mild left hydronephrosis and left hydroureter with 3 mm renal stone in the left UVJ. Mild diverticulosis. Patient received fluids, Toradol in the emergency room. We will discharge patient on ketorolac for pain control, tamsulosin and antibiotics. Discussed findings with the patient, educated patient to patient to the hospital if she starts to develop any fevers, nausea or vomiting. Differential diagnosis: UTI, kidney stone, pyelonephritis, diverticulitis Rationale: Tests considered and ordered secondary to shared decision making include: Previous outside records reviewed: Old ER visits. Risk of complication and/or morbidity or mortality of patient management: None Medications-Per medication reconciliation Need for hospitalization: Patient does not meet criteria for hospitalization. Need for emergency major/minor surgery: No There are no social concerns with this patient. Prescription drug management Prescriptions will include symptomatic care Patient's prior external medical records from other ER visits were reviewed by me as indicated. Prior testing and results from previous visits were reviewed. Prior tests were taken into account with medical decision making and resource utilization, independent historian/historians were used to obtain complete [facility] [facility] history. I independently interpreted the test that were performed, results were reviewed by me and considered findings on radiology if ordered. Medical management and examination interpretation discussions were had by me with other qualified healthcare professionals as indicated for the patient's care. DX & DISP Disposition: Discharge Departure Impression: Primary Impression: Kidney stone Additional Impression: Urinary tract infection Condition: Stable Scripts Sulfamethoxazole/Trimethoprim (Bactrim Ds Tablet) 800 Mg-160 Mg Tablet 1 TAB PO BID for 7 Days, #14 TAB 0 Refills Prov: CHAPIS QUINTEOR NP 04/26/24 Ketorolac Tromethamine (Ketorolac Tromethamine) 10 Mg Tablet 1 TAB PO Q6HPRN PRN for pain for 3 Days, #12 TAB 0 Refills Prov: CHAPIS QUINTERO NP 04/26/24 Tamsulosin HCl (Flomax) 0.4 Mg Cap.er.24h 0.4 MG PO DAILY for 21 Days, #21 CAPSULE. Prov: CHAPIS QUINTERO WATER MANAGER 04/26/24 Additional Instructions: Take the medications as prescribed. If you start to develop fevers, nausea or vomiting please return back to the emergency room. Follow up with your PCP in 1-2 days. Referrals: ISIDRO PALMA MD (PCP) Time of Disposition: 20:56 I have reviewed the case, and I agree with, Diagnosis and Plan CHAPIS QUINTERO NP Apr 26, 2024 20:57
[2024-04-26] MEDS: tamSULOsin HCL 0.4 MG CAP.ER.24H PO STA (21:09)
[2024-04-26] MEDS: cefTRIAXone 1G VIAL IVPB STA (21:09)
[2024-04-26 21:27] VITALS: BP 143/87; PULSE 85; RESP 18; TEMP 98; O2SAT 98
== END 2024-04-26 21:43 | disposition home or self-care (01) ==
LOC: EDH 17:22
DX: N20.0 Calculus of kidney (principal); E78.00 Pure hypercholesterolemia, unspecified; N39.0 Urinary tract infection, site not specified; Z90.49 Acquired absence of other specified parts of digestive tract; Z79.899 Other long term (current) drug therapy
CPT/HCPCS: 99285; 74176; 96365; 96361; 96375; 80048; 85025; 87086; 81001; 81025; 36415; J7030; J0696; J1885

== ENCOUNTER 2025-02-27 23:20 | Emergency (ER) | payer BC ==
[~2025-02-27] VITALS: Ht 149.9 cm; Wt 138.8 kg
[~2025-02-27 23:20] MED LIST changes: +IBUP-1492 PO; -IBUP-2070 PO; +SULF1TAB42 PO; -TAMS-1 PO; +TAMS-55 PO
[2025-02-28 00:55] LABS: APPEARANCE,URINE CLEAR (CLEAR); GLUCOSE, URINE (UA) NEGATIVE (NEGATIVE); LEUKOCYTE ESTERASE ,URINE NEGATIVE Leu/uL (NEGATIVE); NITRATE,URINE NEGATIVE (NEGATIVE); OCCULT BLOOD,URINE NEGATIVE (NEGATIVE)
[2025-02-28 00:56] LABS: ADD UA MICROSCOPIC NO
[2025-02-28 00:56] LABS: IMMATURE GRANULOCYTE ABSOLUTE 0.03 K/uL (0-1); NUCLEATED RED BLOOD CELLS 0.0 % (0.0-0.19); PLATELET COUNT (AUTO) 307 K/uL (130-400); RED BLOOD CELL COUNT(AUTO) 4.51 MIL/uL (4.00-5.50); RED CELL DISTRIBUTION WIDTH 14.0 % (11.0-15.5); WHITE BLOOD COUNT (AUTO) 11.5 K/uL (4.8-10.8)
[2025-02-28 01:19] LABS: CREATININE 0.7 mg/dL (0.5-1.0); GLOMERULAR FILTR. RATE CALC 114.0 mL/min (>90); GLUCOSE,RANDOM 98.0 mg/dL (70-105); SODIUM SERUM 135.0 mmol/L (136-145); UREA NITROGEN, BLOOD 10.0 mg/dL (7-18)
[2025-02-28 01:23] LABS: ASPARTATE AMINOTRANSFERASE 18.0 U/L (10-37); TOTAL PROTEIN, SERUM 7.3 g/dL (6.0-8.3)
[2025-02-28] MEDS: PROCHLORPERAZINE 10MG/2ML INJ IV ONE (01:26)
--- NOTE | 2025-02-28 02:15 | ERN ---
General Chief Complaint: Multiple Complaints Stated Complaint: ABD PAIN, HEADACHCE Time Seen by MD: 23:26 Time Seen by Midlevel: 23:26 Source: patient History of Present Illness Initial Comments The patient is a 35-year-old female with a past medical history of high cholesterol who presents to the emergency department with two complaints. She reports one week of generalized abdominal pain that is localized in his suprapubic area. The pain is rated nine on a 0-10 scale with associated nausea. She also reports persistent headaches for the last couple of days. She saw her primary care doctor who diagnosed her with migraines and gave her a prescription of sumatriptan 25 mg with little to no relief. Allergies: Coded Allergies: No Known Drug Allergies (Verified Allergy, 09/18/11) Home Meds Active Scripts Sulfamethoxazole/Trimethoprim (Bactrim Ds Tablet) 800 Mg-160 Mg Tablet, 1 TAB PO BID for 7 Days, #14 TAB 0 Refills Prov:CHAPIS QUINTERO PROPERTY CLERK 04/26/24 Ketorolac Tromethamine (Ketorolac Tromethamine) 10 Mg Tablet, 1 TAB PO Q6HPRN PRN for pain for 3 Days, #12 TAB 0 Refills Prov:CHAPIS QUINTERO PROPERTY CLERK 04/26/24 Tamsulosin HCl (Flomax) 0.4 Mg Cap.er.24h, 0.4 MG PO DAILY for 21 Days, #21 CAPSULE.DR Prov:CHAPIS QUINTERO PROPERTY CLERK 04/26/24 Methocarbamol (Robaxin) 750 Mg Tab, 750 MG PO DAILY for 7 Days, #7 TAB Prov:ARIES ALVARADO PAC 10/08/23 Ketorolac Tromethamine (Ketorolac Tromethamine) 10 Mg Tablet, 10 MG PO BID for 5 Days, #10 TAB Prov:ARIES ALVARADO PAC 10/08/23 Ibuprofen (Ibuprofen) 600 Mg Tablet, 600 MG PO Q6H PRN for PAIN, #15 TAB Prov:SHANIKA ARENAS [facility] 06/11/22 Sucralfate (Carafate) 1 Gm Tablet, 1 GM PO QIDP PRN for PAIN, #30 TAB 0 Refills Prov:KEANU SMITH MD 02/23/22 Famotidine (Pepcid) 20 Mg Tablet, 20 MG PO DAILY, #20 TAB Prov:KEANU SMITH MD 02/23/22 Cephalexin Monohydrate (Keflex) 500 Mg Cap, 500 MG PO TID for 7 Days, #21 CAP 0 Refills Prov:JAIME BOLANOS MD 09/21/21 Acetaminophen with Codeine (Acetaminophen-Cod #3 Tablet) 1 Each Tablet, 1 EACH PO QID, #20 TAB Prov:EVELIA BLANCO MD 09/14/21 Ibuprofen (Ibuprofen) 600 Mg Tablet, 600 MG PO Q6H PRN for PAIN, #30 TAB Prov:EVELIA BLANCO MD 09/14/21 Butalb/Acetaminophen/Caffeine (Esgic 50-325-40 mg Tablet) 1 Each Tablet, 1 EACH PO TIDP PRN for HEADACHE, #15 TAB 0 Refills Prov:JAIME BOLANOS MD 02/20/21 Tamsulosin HCl (Flomax) 0.4 Mg Cap.er.24h, 0.4 MG PO DAILY, #[address] Prov:ANNA HOLLAND [facility] 11/11/20 Phenazopyridine HCl (Pyridium) 200 Mg Tab, 200 MG PO TIDPC, #9 TAB TAKE WITH FOOD TO PREVENT STOMACH UPSET. Prov:ANNA HOLLAND 11/11/20 Levofloxacin (Levofloxacin) 500 Mg Tablet, 500 MG PO DAILY for cystitis for 7 Days, #15 TAB 0 Refills Prov:KEANU SMITH MD 11/11/20 Ondansetron (Ondansetron Odt) 4 Mg Tab.rapdis, 4 MG PO TID PRN for nausea for 3 Days, #10 TAB Prov:KEANU SMITH MD 11/11/20 Ibuprofen (Ibuprofen) 600 Mg Tablet, 600 MG PO Q6H PRN for PAIN for 10 Days, #30 TAB Prov:KEANU SMITH MD 11/11/20 Past Medical History Past Medical History: High Cholesterol Medical History Other: KIDNEY STONES Past Surgical History: Cholecystectomy Social History Social History: Negative, Lives with family, Other Female( History) History: Not Applicable : 3 Para: 3 Aborts: 0 ROS Dictation CONSTITUTIONAL: Negative except for HPI HEAD/FACE: Negative except for HPI EENT: Negative except for HPI RESPIRATORY: Negative except for HPI GASTROINTESTINAL/ABDOMINAL: Negative except for HPI GENITOURINARY: Negative except for HPI MUSCULOSKELETAL: Negative except for HPI INTEGUMENTARY: Negative except for HPI NEUROLOGICAL/PSYCH: Negative except for HPI HEMATOLOGIC/LYMPHATIC: Negative except for HPI All Systems Negative, Except as noted above. 13 point review of systems assessed and all negative except for above. Physical Exam Physical Exam Dictation Vital Signs reviewed General Appearance: Alert, oriented x 3, no acute distress, well developed, nourished. Head and Face: non-traumatic. Eyes: PERRL, pink conjunctivas, eyelid no trauma, anterior chamber with arcus senilis. Ears: Pinnas intact and no signs of trauma or erythema ear canals clear and no discharge TM no erythema Nose: No discharge, no bleeding. Oropharynx: Mouth normal, tongue pink, pharynx clear,no erythema, tonsils no exudates, no abscesses noted, mucous membrane moist Neck: Supple, non-tender, no thyromegaly, no masses, no JVD, no bruits Breast:Deferred Chest:No tenderness, no crepitus, no paradoxical movement, no retractions Lungs:Clear, well-ventilated, symmetric, no rales, no wheezing, no rhonchi, no stridor, good breath sounds bilaterally Heart: Regular rate, regular rhythm, no murmur, no gallops Vascular: no peripheral edema, Abdomen: Soft, positive bowel sounds, nondistended, no guarding, nontender, no rebound, no masses no hepatomegaly, no splenomegaly, no Collazo's sign, no hernias. Rectal: Deferred Genital: Deferred Neurological: Normal speech, motor function intact, sensory function intact Musculoskeletal: Neck nontender, full range of motion, back nontender, full range of motion, Extremities: nontender, full range of motion Skin: Color pink, dry, no turgor, no rash, no lacerations, no abrasions, no contusions. Lymphatic: Deferred Results Laboratory and Microbiology Lab and Micro Result Laboratory Tests Test 02/27/25 00:39 02/28/25 00:45 Urine Color COLORLESS (YELLOW) Urine Appearance CLEAR (CLEAR) Urine pH 6.5 (5.0-8.0) Urine Specific [place] 1.005 (1.001-1.031) Urine Protein NEGATIVE mg/dL (NEGATIVE) Urine Glucose (UA) NEGATIVE mg/dL (NEGATIVE) Urine Ketones NEGATIVE mg/dL (NEGATIVE) Urine Occult Blood NEGATIVE (NEGATIVE) Urine Nitrate NEGATIVE (NEGATIVE) Urine Bilirubin NEGATIVE mg/dL (NEGATIVE) Urine Urobilinogen 0.2 mg/dL (0.2-1.0) Urine Leukocyte Esterase NEGATIVE Balwinder/uL White Blood Count 11.5 K/uL (4.8-10.8) H Red Blood Count 4.51 MIL/uL (4.00-5.50) Hemoglobin 11.7 g/dL (12.0-16.0) L Hematocrit 38.5 % (36-48) Mean Corpuscular Volume 85.4 fL (79-99) Mean Corpuscular Hemoglobin 25.9 pg (27.0-33.0) L Mean Corpuscular Hemoglobin Concent 30.4 g/dL (32.0-36.0) L Red Cell Distribution Width 14.0 % (11.0-15.5) Platelet Count 307 K/uL (130-400) Mean Platelet Volume 8.9 fL (7.5-10.5) Immature Granulocyte % (Auto) 0.3 % (0-1) Neutrophils (%) (Auto) 65.7 % (40.0-77.0) Lymphocytes (%) (Auto) 24.2 % (21.0-51.0) Monocytes (%) (Auto) 7.6 % (3.0-13.0) Eosinophils (%) (Auto) 1.6 % (0.0-8.0) Basophils (%) (Auto) 0.6 % (0.0-5.0) Neutrophils # (Auto) 7.6 K/uL (1.8-7.7) Lymphocytes # (Auto) 2.8 K/uL (1.0-4.8) Monocytes # (Auto) 0.9 K/uL (0.1-1.0) Eosinophils # (Auto) 0.18 K/uL (0.00-0.70) Basophils # (Auto) 0.07 K/uL (0.00-0.20) Absolute Immature Granulocyte (auto 0.03 K/uL (0-1) Nucleated Red Blood Cells 0.0 % (0.0-0.19) Red Blood Cell Morphology See comments Sodium Level 135 mmol/L (136-145) L Potassium Level 3.8 mmol/L (3.5-5.1) Chloride Level 98 mmol/L (101-111) L Carbon Dioxide Level 28 mmol/L (21-32) Blood Urea Nitrogen 10 mg/dL (7-18) Creatinine 0.7 mg/dL (0.5-1.0) Glomerular Filtration Rate Calc 114 mL/min (>90) Random Glucose 98 mg/dL (70-105) Total Calcium 8.9 mg/dL (8.5-10.1) Total Bilirubin 0.5 mg/dL (0.2-1.0) Aspartate Amino Transf (AST/SGOT) 18 U/L (10-37) Alanine Aminotransferase (ALT/SGPT) 26 U/L (12-78) Alkaline Phosphatase 102 U/L (50-136) Total Protein 7.3 g/dL (6.0-8.3) Albumin 3.4 g/dL (3.5-5.0) L Lipase 32 U/L (16-77) Serum Test, Qualitative NEGATIVE (NEGATIVE) Labs Reviewed?: Yes EKG/XRAY/US/CT/MRI CT Scan Comment EXAM: Non-contrast CT examination of the Brain CLINICAL HISTORY: Persistent migraine-like headache. TECHNIQUE: Thin collimated axial CT images of the brain were obtained with sagittal and coronal reformatted images also submitted. CT scan is done according to ALARA (As Low as Reasonably Achievable). CONTRAST USED: None. COMPARISON: None provided. FINDINGS: No acute intracranial abnormality is present. No acute cortical infarction, hemorrhage, mass, or mass effect. No hydrocephalus or abnormal extra-axial fluid collections. The posterior fossa is unremarkable. The skull base and calvarium are intact. The included portions of the paranasal sinuses and mastoid air cells are clear. IMPRESSION: No acute intracranial abnormality is present. /[facility] MDM: Migraine DIFFERENTIAL DIAGNOSIS: Migraine, headache, RATIONALE: TESTS CONSIDERED AND ORDERED SECONDARY TO SHARED DECISION MAKING INCLUDE: PREVIOUS OUTSIDE RECORDS REVIEWED: OLD ER VISITS. RISK OF COMPLICATION AND/OR MORBIDITY OR MORTALITY OF PATIENT MANAGEMENT: NONE MEDICATIONS-PER MEDICATION RECONCILIATION NEED FOR HOSPITALIZATION: PATIENT DOES NOT MEET CRITERIA FOR HOSPITALIZATION. NEED FOR EMERGENCY MAJOR/MINOR SURGERY: NO THERE ARE NO SOCIAL CONCERNS WITH THIS PATIENT. PRESCRIPTION DRUG MANAGEMENT PRESCRIPTIONS WILL INCLUDE SYMPTOMATIC CARE PATIENT'S PRIOR EXTERNAL MEDICAL RECORDS FROM OTHER ER VISITS WERE REVIEWED BY ME INDICATED. PRIOR TESTING AND RESULTS FROM PREVIOUS VISITS WERE REVIEWED. PRIOR TESTS WERE TAKEN INTO ACCOUNT WITH MEDICAL DECISION MAKING AND RESOURCE UTILIZATION, INDEPENDENT HISTORIAN/HISTORIANS WERE USED TO OBTAIN COMPLETE MEDICAL HISTORY. I INDEPENDENTLY INTERPRETED THE TEST THAT WERE PERFORMED, RESULTS WERE REVIEWED BY ME AND CONSIDERED FINDINGS ON RADIOLOGY IF ORDERED. MEDICAL MANAGEMENT AND EXAMINATION INTERPRETATION DISCUSSIONS WERE HAD BY ME WITH OTHER QUALIFIED HEALTHCARE PROFESSIONALS INDICATED FOR THE PATIENT'S CARE. ED Course Orders Procedure Category Date Status Time Cbc With Differential LAB 02/27/25 Complete 23:34 Comprehensive LAB 02/27/25 Complete Metabolic Panel 23:34 Lipase LAB 02/27/25 Complete 23:34 Testing, LAB 02/27/25 Complete Serum Hcg 23:34 Urinalysis Profile LAB 02/27/25 Complete 23:34 Ct Head/Brain W/O CT 02/27/25 Resulted Contrast 23:34 Diphenhydramine Hcl PHA 02/28/25 Complete (Benadryl Inj) 00:00 Ketorolac PHA 02/28/25 Complete Tromethamine 15mg/Ml 00:00 Prochlorperazine PHA 02/28/25 Complete 10mg/2ml Inj 01:30 Current Medications Medications (Trade) Dose Ordered Sig/Merle Route PRN Reason Start Time Stop Time Status Last Admin Dose Admin Diphenhydramine HCl (BENAdryl INJ) 25 mg ONCE ONCE IV 02/28/25 00:00 02/28/25 00:01 DC 02/28/25 01:24 Ketorolac Tromethamine (toRADol) 15 mg ONCE ONCE IV 02/28/25 00:00 02/28/25 00:01 DC 02/28/25 01:24 Prochlorperazine Edisylate (Compazine 10mg/ 2ml Inj) 5 mg ONCE ONCE IV 02/28/25 01:30 02/28/25 01:31 DC 02/28/25 01:26 Vital Signs Date Time Temp Pulse Resp B/P (MAP) Pulse Ox O2 Delivery O2 Flow Rate FiO2 02/28/25 00:07 98.6 88 20 118/76 98 Room Air* 0 21 02/27/25 23:22 98.4 95 20 150/82 99 Room Air 0322: Labs and imaging reassuring at this time. Discussed labs and imaging with the patient. Patient feels much better after migraine cocktail. We will discharge home on Excedrin. Advised on concerning signs and symptoms for which to return to emergency room. Discharge. DX & DISP Disposition: Discharge Departure Impression: Primary Impression: Migraine headache Condition: Stable Scripts Aspirin/Acetaminophen/Caffeine (Excedrin Extra Strength Caplet) 250 Mg-250 Mg-65 Mg Tablet 1 EACH PO QIDP PRN for HEADACHE for 7 Days, #28 TAB Prov: JAMAL WOODSON MD 02/28/25 Referrals: SELF,REFERRAL (PCP) ARIES ALVARADO Feb 28, 2025 02:15 JAMAL WOODSON MD Feb 28, 2025 03:24
--- NOTE | 2025-02-28 03:10 | HMCIMG ---
EXAM: Non-contrast CT examination of the Brain CLINICAL HISTORY: Persistent migraine-like headache. TECHNIQUE: Thin collimated axial CT images of the brain were obtained with sagittal and coronal reformatted images also submitted. CT scan is done according to ALARA (As Low as Reasonably Achievable). CONTRAST USED: None. COMPARISON: None provided. FINDINGS: No acute intracranial abnormality is present. No acute cortical infarction, hemorrhage, mass, or mass effect. No hydrocephalus or abnormal extra-axial fluid collections. The posterior fossa is unremarkable. The skull base and calvarium are intact. The included portions of the paranasal sinuses and mastoid air cells are clear. IMPRESSION: No acute intracranial abnormality is present. /[place]
[2025-02-28] MEDS ORDERED: ASPI-1190 PO (03:23)
[2025-02-28 03:33] VITALS: BP 120/73; PULSE 84; RESP 18; TEMP 98.6; O2SAT 99
== END 2025-02-28 03:34 | disposition home or self-care (01) ==
LOC: EDH 23:20
DX: G43.909 Migraine, unspecified, not intractable, without status migrainosus (principal); E78.00 Pure hypercholesterolemia, unspecified; Z79.899 Other long term (current) drug therapy; Z87.442 Personal history of urinary calculi; Z90.49 Acquired absence of other specified parts of digestive tract
CPT/HCPCS: 99284; 70450; 80053; 84703; 83690; 85025; 81003; 36415; 96374; 96375; J1885; J1200; J0780